=== PATIENT | female | born 1955 | race Two or more races ===

== ENCOUNTER 2022-11-18 09:38 | Outpatient (CLI) | payer OTHER | END 2022-11-18 09:42 | disposition home or self-care (01) | LOC: EKG 09:38 | PROVIDERS: ATTEND Surgery | DX: Z01.810 Encounter for preprocedural cardiovascular examination (principal); K64.2 Third degree hemorrhoids; K62.89 Other specified diseases of anus and rectum; K62.5 Hemorrhage of anus and rectum ==

== ENCOUNTER 2022-11-27 05:00 | Day surgery (SDC) | payer OTHER ==
[~2022-11-27] VITALS: Ht 154.9 cm; Wt 83.9 kg
[~2022-11-27 05:00] MED LIST: COZAAR50 MG PO
[2022-11-27] MEDS ORDERED: OXYC1TAB9 PO (09:54)
== END 2022-11-27 14:36 | disposition home or self-care (01) ==
LOC: CIR.AMB 05:00
PROVIDERS: ATTEND Surgery
DX: K62.5 Hemorrhage of anus and rectum (principal); K64.4 Residual hemorrhoidal skin tags; K64.8 Other hemorrhoids; K64.2 Third degree hemorrhoids; K62.89 Other specified diseases of anus and rectum; Z20.822 Contact with and (suspected) exposure to COVID-19; I10 Essential (primary) hypertension

== ENCOUNTER 2022-11-29 09:35 | Emergency (ER) | payer OTHER ==
[~2022-11-29] VITALS: Ht 162.6 cm; Wt 83.9 kg
[~2022-11-29 09:35] MED LIST changes: +OXYC1TAB9 PO
== END 2022-11-29 12:39 | disposition home or self-care (01) ==
LOC: ER 09:35
DX: T83.091A Other mechanical complication of indwelling urethral catheter, initial encounter (principal); Z98.890 Other specified postprocedural states